=== PATIENT | male | born 1995 | race Caucasian/White ===

== ENCOUNTER 2023-12-26 11:23 | Emergency (ER) | payer OTHER, SELFPAY ==
[2023-12-26 11:30] VITALS: BP 157/99
--- NOTE | 2023-12-26 12:15 | ED.GENMED ---
History of Present Illness
General
Chief Complaint: Chest Pain
Source: patient
Exam Limitations: none
Time Seen by Provider: 12/26/23 12:08
Travel History
Have you had any contact with someone who has COVID-19?: No
Do you have any symptoms of coronavirus? Fever > 100 degrees, chills, cough, shortness of breath, sore throat, loss of taste or smell, muscle aches, or headache?: No
History of Present Illness
History of Present Illness:
28-year-old male presents with 2 days worth of intermittent left-sided chest discomfort. He states he was sitting eating dinner last night having a couple beers and after smoking some marijuana he developed a lightheaded sensation. He has had
ongoing intermittent chest pain since then as well. He is healthy otherwise. Does not take any medications. No family history of cardiac disease. No recent travel. No leg swelling or calf pain. No recent surgery. Pain in his chest is not
pleuritic. No other complaints at this time
Phy Exam
Physical Exam
Physical Exam:
General: Well-appearing male no acute respiratory distress
HEENT: Normocephalic atraumatic
Heart: Regular rate and rhythm no murmurs lungs: Clear to auscultation bilaterally no wheezing
Abdomen: Soft nontender nondistended extremities: No cyanosis or edema
Skin: warm, no rash or lesions
Scores
Heart Score for Chest Pain Patients
STEMI patient?: No
History: Slightly or Non-Suspicious
ECG: Normal
Age: </= 45 years
Risk Factors: 1 or 2 Risk Factors
Troponin: </= Normal Limit
Heart Score for Chest Pain Patients: 1
Heart Score Risk: 2.5% MACE over next 6 weeks
PERC Rule Criteria
Age <50 years: Yes
HR <100 bpm: Yes
Room air oxygen sat >94%: Yes
History of DVT or PE: No
Recent trauma or surgery: No
Hemoptysis: No
Exogenous estrogen: No
Clinical signs suggestive of DVT: No
: No
Considered low risk for PE: Yes
PERC Score: 0
PE can be excluded by PERC: Yes
Course
Orders/Labs/Results
Orders:
Orders
12/26/23 11:34
EKG [Electrocardiogram (*1)] Urgent
Reason for Study: Chest Pain
12/26/23 11:35
EKG- Treatment ONCE
12/26/23 12:16
Cardiac Monitoring- Treatment ONCE
12/26/23 12:24
Complete Blood Count/With Diff Urgent
Comprehensive Metabolic Panel Urgent
Troponin I Urgent
Abnormal Lab Results
12/26/23
12:24
Lymphocytes % 20.2 L %
(20.5-51.1)
Glucose 110 H mg/dl
(70-99)
Total Bilirubin 1.5 H mg/dl
(0.2-1.3)
12/26/23 12:24
12/26/23 12:24
Vital Signs
Initial and Last Documented VS:
Initial Vital Signs
Temp Pulse Resp BP Pulse Ox
99.0 F 100 18 157/99 99
12/26/23 11:30 12/26/23 11:30 12/26/23 11:30 12/26/23 11:30 12/26/23 11:30
Last Documented Vital Signs
Temp Pulse Resp BP Pulse Ox
99.0 F 93 29 148/97 99
12/26/23 11:30 12/26/23 14:30 12/26/23 14:30 12/26/23 14:00 12/26/23 11:30
MDM/Problems Addressed
Differential Diagnosis Includes:
Chest pain. Near syncope last night. Will check for arrhythmias, electrolyte abnormality or anemia. Do not suspect ACS but workup is pending. EKG shows sinus rhythm with rate of 85 no ischemic changes
*Critical Care Note
Total Time (30-74mins, 75-104mins- exclusive of procedures): Not Applicable
Update Note
Update Note:
Workup. Negative. Troponin undetectable. Patient has had 2 days worth of symptoms. No need for repeat troponin at this point given young and healthy otherwise. Vital signs remained stable. No arrhythmias noted. Recommend follow-up with family
doctor.
ED Attending Note
-
Portions of this chart may have been created with voice recognition software.� Occasional wrong word or��sound alike� substitutions may have occurred due to the inherent limitations of voice recognition software.
Discharge Plan
Departure
Patient Disposition: Home (Routine Discharge)
Date of Disposition: 12/26/23
Time of Disposition: 14:54
Patient with high blood pressure during this ER visit?: No
Discharge Problem:
Chest pain
Referrals:
Giovani Kauffman, DO [Family Provider] -
Activity Restrictions/Additional Instructions:
Return here for worsening symptoms otherwise follow-up with family doctor
Interventions
Interventions:
*Risk Screen - Suicide Last Done: 12/26/23 11:30
*General Assessment Last Done: 12/26/23 12:31
*Neglect/Abuse Screening Last Done: 12/26/23 11:30
*ED COVID-19 Vaccine History Last Done: 12/26/23 11:30
ED- Cardiac Assessment Last Done: 12/26/23 12:32
[2023-12-26 12:30] VITALS: BP 140/92
[2023-12-26 12:43] LABS: % Basophils 0.6 % (0-2); % Eosinophils 0.5 % (0-6); % Immature Granulocytes 0.2 % (0-0.5); % Lymphocytes 20.2 % (20.5-51.1); % Monocytes 4.6 % (1.7-9.3); % Neutrophils 73.9 % (42.2-75.2); Absolute Basophils 0.1 10^3/uL (0-0.2); Absolute Lymphocytes 1.7 10^3/uL (1.2-3.4); Absolute Monocytes 0.4 10^3/uL (0.1-0.6); Absolute Neutrophils 6.1 10^3/uL (1.4-6.5); Hematocrit 45.3 % (39.0-52.0); Hemoglobin 16.1 g/dL (13.0-18.0); Mean Corp Hgb Conc. 35.5 g/dL (33.0-37.0); Mean Corpuscular Hgb 30.4 pg (27.0-31.0); Mean Corpuscular Volume 85.5 fL (80.0-94.0); Mean Platelet Volume 9.2 fL (7.4-10.4); Nucleated Red Blood Cells % 0 % (-); Platelet Count 233 10^3/uL (130-400); Red Cell Dist. Width 12.1 % (11.5-14.5); White Blood Cell Count 8.2 10^3/uL (4.8-10.8)
[2023-12-26 13:00] VITALS: BP 142/96
[2023-12-26 13:00] LABS: ALT (SGPT) 26 U/L (0-50); AST (SGOT) 26 U/L (17-59); Albumin 4.9 g/dl (3.5-5.0); Alkaline Phosphatase 54 U/L (38-126); Blood Urea Nitrogen 12 mg/dl (9-20); Calcium 9.5 mg/dl (8.4-10.2); Carbon Dioxide 27 mmol/L (22-30); Chloride 105 mmol/L (98-107); Glucose 110 mg/dl (70-99); Potassium 3.9 mmol/L (3.5-5.1); Sodium 140 mmol/L (135-145); Total Bilirubin 1.5 mg/dl (0.2-1.3); Total Protein 7.8 g/dl (6.3-8.2); eGFR > 60.00
[2023-12-26 13:06] LABS: Troponin I < 0.012 ng/ml
[2023-12-26 14:00] VITALS: BP 148/97
[2023-12-26 15:00] VITALS: BP 132/78
== END 2023-12-26 15:01 | disposition home or self-care (01) ==
LOC: EMR 11:23
PROVIDERS: Physician Assistant; EMERGENCY PHYSICIAN Emergency Medicine; FAMILY PHYSICIAN Family Medicine
DX: R07.89 Other chest pain (principal); R42 Dizziness and giddiness
CPT/HCPCS: 99284; 80053; 84484; 85025; 93005